=== PATIENT | female | born 1970 ===

== ENCOUNTER 2024-11-27 15:19 | Inpatient (IN) | payer OTHER ==
[~2024-11-27] VITALS: Ht 157.5 cm; Wt 75.5 kg
[2024-11-27 16:57] LABS: BASOPHILS ABSOLUTE AUTO 0.03 K/mm3 (0.00-0.23); BASOPHILS PERCENT AUTO 0 % (0-2); EOSINOPHILS ABSOLUTE AUTO 0.06 K/mm3 (0.00-0.68); EOSINOPHILS PERCENT AUTO 1 % (0-6); Hematocrit 38.9 % (33.0-51.0); Hemoglobin 13.7 g/dL (11.5-16.0); IMMATURE GRAN ABSOLUTE AUTO 0.02 K/mm3 (0.00-0.10); IMMATURE GRAN PERCENT AUTO 0 % (0-1); LYMPHOCYTES ABSOLUTE AUTO 1.32 K/mm3 (0.84-5.20); LYMPHOCYTES PERCENT AUTO 16 % (21-46); MONOCYTES ABSOLUTE AUTO 0.68 K/mm3 (0.16-1.47); MONOCYTES PERCENT AUTO 8 % (4-13); Mean Corpuscular HGB Conc 35.2 g/dL (31.5-36.5); Mean Corpuscular Volume 98 fL (80-100); NEUTROPHILS ABSOLUTE AUTO 6.23 K/mm3 (1.96-9.15); NEUTROPHILS PERCENT AUTO 75 % (41-73); NRBC ABSOLUTE 0.00 K/mm3 (0.00-0.02); NRBC Auto 0.0 /100 WBC (0.0-0.2); Platelet Count 142 K/mm3 (150-400); RDW Coefficient Variation 11.7 % (11.7-14.2); RDW Standard Deviation 42.5 fL (35.1-46.3)
[2024-11-27 17:47] LABS: Alanine Aminotransfer (ALT/SGP 44.0 U/L (12-78); Albumin, Blood 3.4 g/dL (3.4-5.0); Albumin/Globulin Ratio 0.7 (0.8-1.8); Anion Gap 8.0 mmol/L (3-11); Aspartate Aminotrans (AST/SGOT 41.0 U/L (12-37); Bilirubin, Total 0.5 mg/dL (0.1-1.0); Blood Urea Nitrogen 10.0 mg/dL (8-24); CO2, Blood 26.0 mmol/L (21-32); Calcium, Blood 9.6 mg/dL (8.5-10.1); Chloride, Blood 102.0 mmol/L (98-108); Creatinine, Blood 0.67 mg/dL (0.40-1.00); Globulin, Blood 4.9 g/dL (2.2-4.0); Glucose, Blood 104.0 mg/dL (70-99); Potassium, Blood 3.9 mmol/L (3.5-5.5); Sodium, Blood 132.0 mmol/L (136-145); Total Protein, Blood 8.3 g/dL (6.4-8.2)
[2024-11-27 18:09] LABS: Source, Urine Clean Catch
[2024-11-27 18:31] LABS: Bilirubin, Urine Neg (Neg); Color, Urine Yellow (P-Yellow); Glucose Qualitative, Urine Neg (Neg); Ketones, Urine 3+ (Neg); Leukocyte Esterase, Urine 1+ (Neg); Protein, Urine 2+ (Neg); Specific Gravity, Urine 1.015 (1.003-1.022); Urobilinogen, Urine NORM (Normal)
[2024-11-27 18:48] LABS: Red Blood Cells, Urine 0-2 /hpf (0-2)
[2024-11-27] MEDS ORDERED: Cefepime HCl 1,000 MG in NS 100 ML IV ONE (19:40)
[2024-11-27] MEDS ORDERED: Vancomycin (Pharmacy Consult) IV PRN ×2 (19:40→23:40)
[2024-11-27] MEDS ORDERED: Ondansetron HCl 2 MG / ML 2ML Vial IV ONE (19:55)
[2024-11-27] MEDS ORDERED: Prinivil10 MG PO (20:18)
[2024-11-27] MEDS ORDERED: SERT100 PO (20:19)
[2024-11-27] MEDS ORDERED: NS 1,000 ML IV SCH (23:35)
[2024-11-27] MEDS ORDERED: Ondansetron HCl 2 MG / ML 2ML Vial IV PRN (23:40)
[2024-11-27] MEDS ORDERED: Polyethylene Glycol 3350 17 gm PO PRN (23:45)
[2024-11-28] MEDS ORDERED: Piperacillin/Tazobactam Sod 4.5 GM in NS 100 ML IV SCH
[2024-11-28 00:31] VITALS: BP 140/84
--- NOTE | 2024-11-28 03:28 | NUR ---
ADMIT NOTE 54 YR OLD FEMALE ADMITTED TO FLOOR FROM THE ED WITH DX OF PERINEPHRIA ABSCESS OF LEFT KIDNEY. VSS. ED RN REPORTED PT HAD BEEN HAVING FLANK PAIN FOR ABOUT 3 WKS, AND FEVER, HOPING THAT IT WOULD GO AWAY BUT FINALLY CAME IN TO THE ED FOR TREATMENT. A/O X 4. UP AD GLORIA. ON IV ANTIBIOTICS. ORIENTED TO USE OF CALL LIGHT. CALL LIGHT IN REACH. RAILS UP X 2 AND BED IN LOW POSITION FOR SAFETY.
--- NOTE | 2024-11-28 04:58 | NUR ---
GOLF COACH SUMMARY WAS ADMITTED TO FLOOR FROM THE ED EARLIER IN THE SHIFT WITH DX OF PERINEPHRIA OF LEFT KIDNEY. UP AD GLORIA. IVF OF NS AT 100 ML/HR AND IV ANTIBIOTICS ADMIN -SEE MAR FOR DETAILS. HAS BEEN RESTING QUIETLY WITH FEW INTERRUPTIONS. A/O X 4. CALL LIGHT IN REACH, RAILS UP X 2 AND BED IN LOW POSITION FOR SAFETY. NO C/O VOICED OF PAIN OF THIS TIME. WILL CONT TO MONITOR.
[2024-11-28 06:03] VITALS: BP 141/90
[2024-11-28 07:19] LABS: BASOPHILS ABSOLUTE AUTO 0.02 K/mm3 (0.00-0.23); BASOPHILS PERCENT AUTO 0 % (0-2); EOSINOPHILS ABSOLUTE AUTO 0.10 K/mm3 (0.00-0.68); EOSINOPHILS PERCENT AUTO 2 % (0-6); Hematocrit 34.7 % (33.0-51.0); Hemoglobin 12.0 g/dL (11.5-16.0); IMMATURE GRAN ABSOLUTE AUTO 0.01 K/mm3 (0.00-0.10); IMMATURE GRAN PERCENT AUTO 0 % (0-1); LYMPHOCYTES ABSOLUTE AUTO 1.16 K/mm3 (0.84-5.20); LYMPHOCYTES PERCENT AUTO 18 % (21-46); MONOCYTES ABSOLUTE AUTO 0.76 K/mm3 (0.16-1.47); MONOCYTES PERCENT AUTO 12 % (4-13); Mean Corpuscular HGB Conc 34.6 g/dL (31.5-36.5); Mean Corpuscular Volume 99 fL (80-100); NEUTROPHILS ABSOLUTE AUTO 4.48 K/mm3 (1.96-9.15); NEUTROPHILS PERCENT AUTO 69 % (41-73); NRBC ABSOLUTE 0.00 K/mm3 (0.00-0.02); NRBC Auto 0.0 /100 WBC (0.0-0.2); Platelet Count 145 K/mm3 (150-400); RDW Coefficient Variation 11.5 % (11.7-14.2); RDW Standard Deviation 41.8 fL (35.1-46.3)
[2024-11-28 07:40] VITALS: BP 125/85
[2024-11-28 07:41] LABS: Alanine Aminotransfer (ALT/SGP 35.0 U/L (12-78); Albumin, Blood 2.9 g/dL (3.4-5.0); Albumin/Globulin Ratio 0.7 (0.8-1.8); Anion Gap 6.0 mmol/L (3-11); Aspartate Aminotrans (AST/SGOT 32.0 U/L (12-37); Bilirubin, Total 0.4 mg/dL (0.1-1.0); Blood Urea Nitrogen 8.0 mg/dL (8-24); CO2, Blood 24.0 mmol/L (21-32); Calcium, Blood 8.6 mg/dL (8.5-10.1); Chloride, Blood 106.0 mmol/L (98-108); Creatinine, Blood 0.59 mg/dL (0.40-1.00); Globulin, Blood 3.9 g/dL (2.2-4.0); Glucose, Blood 109.0 mg/dL (70-99); Potassium, Blood 3.5 mmol/L (3.5-5.5); Sodium, Blood 132.0 mmol/L (136-145); Total Protein, Blood 6.8 g/dL (6.4-8.2)
[2024-11-28] MEDS ORDERED: Enoxaparin 40 MG/0.4 ML SYR SC SCH (09:00)
[2024-11-28] MEDS ORDERED: Lactobacil 2-S.Thermo-Bifido 1 1 Cap PO SCH (09:00)
--- NOTE | 2024-11-28 17:59 | NUR ---
End of shift summary: Patient is alert and oriented x4; pleasant and cooperative with care. Patient independent in room, denies pain, N/V/D, SOB or CP this shift. Patient with no acute changes today. All medications administered per EMAR. Patient utilizing call light appropriately; call light within reach, bed in lowest postion. Will continue to monitor until next shift nurse arrives and report is given.
[2024-11-28 19:18] VITALS: BP 108/77
--- NOTE | 2024-11-28 19:19 | NUR ---
ASSUMPTION OF CARE: THIS RN ASSUMED CARE OF PATIENT. AWAKE DURING SHIFT CHANGE REPORT. SITTING UP IN BED c HOB ELEVATED. BREATHING EVEN AND UNLABORED c ROOM AIR. BED IN LOWEST POSITION. CALL LIGHT WITHIN REACH. ACUTE NEEDS MET.
[2024-11-28] MEDS ORDERED: NS 250 ML IV SCH (20:45)
[2024-11-29 03:34] VITALS: BP 110/98
--- NOTE | 2024-11-29 06:50 | NUR ---
END OF SHIFT SUMMARY: A&Ox4. PLEASANT AND COOPERATIVE WITH CARE. CALLS APPROPRIATELY AND IS ABLE TO ADVOCATE NEEDS EFFECTIVELY. CONTINENT OF BOWEL AND BLADDER; LBM 11/27/24. AMBULATES INDEPENDENTLY. MEDS WHOLE c FLUIDS. NO C / O PAIN OR DISCOMFORT. SLEPT MAJORITY OF SHIFT. AM LABS TO BE DRAWN c [address]. BED IN LOWEST POSITION, CALL LIGHT WITHIN REACH, ALL NEEDS MET. REPORT TO ONCOMING NURSE.
[2024-11-29 07:42] VITALS: BP 144/87
[2024-11-29 08:22] LABS: BASOPHILS ABSOLUTE AUTO 0.02 K/mm3 (0.00-0.23); BASOPHILS PERCENT AUTO 0 % (0-2); EOSINOPHILS ABSOLUTE AUTO 0.14 K/mm3 (0.00-0.68); EOSINOPHILS PERCENT AUTO 3 % (0-6); Hematocrit 38.8 % (33.0-51.0); Hemoglobin 13.2 g/dL (11.5-16.0); IMMATURE GRAN ABSOLUTE AUTO 0.01 K/mm3 (0.00-0.10); IMMATURE GRAN PERCENT AUTO 0 % (0-1); LYMPHOCYTES ABSOLUTE AUTO 1.28 K/mm3 (0.84-5.20); LYMPHOCYTES PERCENT AUTO 25 % (21-46); MONOCYTES ABSOLUTE AUTO 0.80 K/mm3 (0.16-1.47); MONOCYTES PERCENT AUTO 16 % (4-13); Mean Corpuscular HGB Conc 34.0 g/dL (31.5-36.5); Mean Corpuscular Volume 99 fL (80-100); NEUTROPHILS ABSOLUTE AUTO 2.90 K/mm3 (1.96-9.15); NEUTROPHILS PERCENT AUTO 56 % (41-73); NRBC ABSOLUTE 0.00 K/mm3 (0.00-0.02); NRBC Auto 0.0 /100 WBC (0.0-0.2); Platelet Count 158 K/mm3 (150-400); RDW Coefficient Variation 11.6 % (11.7-14.2); RDW Standard Deviation 42.2 fL (35.1-46.3)
[2024-11-29 08:44] LABS: Alanine Aminotransfer (ALT/SGP 34 U/L (12-78); Albumin, Blood 3.1 g/dL (3.4-5.0); Albumin/Globulin Ratio 0.7 (0.8-1.8); Anion Gap 11 mmol/L (3-11); Aspartate Aminotrans (AST/SGOT 30 U/L (12-37); Bilirubin, Total 0.5 mg/dL (0.1-1.0); Blood Urea Nitrogen 6 mg/dL (8-24); CO2, Blood 26 mmol/L (21-32); Calcium, Blood 9.1 mg/dL (8.5-10.1); Chloride, Blood 108 mmol/L (98-108); Creatinine, Blood 0.72 mg/dL (0.40-1.00); Globulin, Blood 4.6 g/dL (2.2-4.0); Glucose, Blood 112 mg/dL (70-99); Potassium, Blood 3.7 mmol/L (3.5-5.5); Sodium, Blood 141 mmol/L (136-145); Total Protein, Blood 7.7 g/dL (6.4-8.2); Vancomycin, Trough 16.9 ug/mL (5.0-10.0)
[2024-11-29] MEDS ORDERED: VISBIOME 112.51 EACH PO (13:07)
[2024-11-29] MEDS ORDERED: CIPR500 PO (13:08)
--- NOTE | 2024-11-29 15:50 | NUR ---
DISCHARGE SUMMARY CLIENT IS AOX4.MEDICATION COMPLIANT. CONTINUES ON IV ABT. CLIENT SEEN BY PROVIDER. DISCHARGE AFTER CARE WAS DISCUSSED. DISCHARGE ORDERS WERE RECEIVED. MEDICATION LIST FAXED TO [facility] PER CLIENT REQUEST. IV DISCONTINUED. DISCHARGE PACKET REVIEWED WITH CLIENT. CLIENT ABULATED OFF OF THE UNIT.
== END 2024-11-29 13:27 | disposition home or self-care (01) | DRG 690 ==
LOC: ER 15:19 → ERHOLD 21:40 → MEDS 21:40
PROVIDERS: Emergency Medicine; Physician Assistant; ADMIT Internal Medicine
DX: N15.1 Renal and perinephric abscess (principal); E87.1 Hypo-osmolality and hyponatremia; D69.6 Thrombocytopenia, unspecified; B96.20 Unspecified Escherichia coli [E. coli] as the cause of diseases classified elsewhere; I10 Essential (primary) hypertension; F32.A Depression, unspecified
CPT/HCPCS: 36415; 74177; 80053; 80202; 81001; 83605; 85025; 87077; 87086; 87186; 93005; 93010; 96372-59; 96375; 99285-25; A9270; J0692; J1650; J2405; J2543; J3373; J7030; J7040; J7050; Q9967